=== PATIENT | male | born 1980 | race Caucasian/White ===

== ENCOUNTER 2016-12-29 10:28 | Day surgery (SDC) | payer OTHER ==
[2016-12-27 14:18] VITALS: BMI 27.8
[2016-12-29] MEDS ORDERED: PROPOFOL 20 ML ONE (12:28)
--- NOTE | 2016-12-29 12:55 | HP ---
Satellite [facility] - Chief Complaint Chief Complaint: right shoulder pain - Past Medical History Allergies/Adverse Reactions: Allergies Allergy/AdvReac Type Severity Reaction Status Date / Time No Known Allergies Allergy Verified 12/29/16 10:53 - Current Medications Current Medications: Home Medications Medication Instructions Recorded Multivitamins [Multivit ([facility] 1 tab PO DAILY 12/27/16 Formulary)] Hydrocodone/Acetaminophen [[place] 1 each PO Q6H PRN #40 tablet MDD 4 12/29/16 5-325 Tablet] Satellite Physical Exam - Physical Examination Vital Signs: Vital Signs Period Temp Pulse Resp BP Sys/Kitchen Pulse Ox Last 24 Hr 97.7 F 60 18 146/71 97 General Appearance: Well Nourished, Well Developed, Alert & Oriented x3 ENT: Clear Lung: Normal air movement Heart: Regular rate & rhythm Extremities: Other (right shoulder- + ttp, decr rom, + empty can, nvi MRI + rct , labral tear) Neurological: Intact, Alert, Oriented Satellite Impression/Plan - Impression/Plan Impression: left shoulder rct, labral tear Operative Procedure: left shoulder arthroscopy with RCR Date to be Performed: 12/29/16
[2016-12-29] MEDS ORDERED: ceFAZolin SODIUM 1 GM VIAL IVPB ONE (13:34)
[2016-12-29] MEDS ORDERED: ceFAZolin SODIUM 1 GM VIAL ONE (13:41)
[2016-12-29] MEDS ORDERED: DESFLURANE GAS 240 ML BOTTLE IH ONE (13:46)
--- NOTE | 2016-12-29 14:57 | OP ---
Operative Note - Note: Operative Date: 12/29/16 ([facility]) Pre-Operative Diagnosis: right shoulder rct, labral tear Operation: right shoulder arthroscopy with RCR, labral repair, SAD Implants: 1 arthrex pushjorge, speedbridge Post-Operative Diagnosis: Same as Pre-op Surgeon: Santi Castro Fibrous Wallboard Inspector: Phani Forrest Anesthesiologist/SEISMOGRAPH CHIEF: Cheikh Estes Anesthesia: General, Local Specimens Removed: shavings Estimated Blood Loss (mls): 10 Operative Report Dictated: Yes
[2016-12-29] MEDS ORDERED: ONDANSETRON 4 MG/2 ML VIAL IVPUSH PRN (15:03)
[2016-12-29] MEDS ORDERED: oxyCODONE HCL 5 MG TABLET PO PRN (15:03)
[2016-12-29] MEDS ORDERED: LACTATED RINGERS SOLUTION 1,000 ML IV SCH (15:15)
[2016-12-29 16:17] VITALS: TEMP 98.2
--- NOTE | 2016-12-29 17:14 | OP ---
DATE OF OPERATION: 12/29/2016 PREOPERATIVE DIAGNOSES: Right shoulder impingement, labral tear, and rotator cuff tear, and adhesive capsulitis. POSTOPERATIVE DIAGNOSES: Right shoulder impingement, labral tear, and rotator cuff tear, and adhesive capsulitis. PROCEDURE: Right shoulder arthroscopy, subacromial decompression, arthroscopic labral repair, arthroscopic rotator cuff repair, and manipulation under anesthesia. SURGEON: Santi Castro MD BASTER HAND: TANYA Nickerson; Cheikh Estes CRNA ANESTHESIA: Right interscalene block with LM anesthesia. DRAINS: None. COMPLICATIONS: None. BLOOD LOSS: Minimal. BLOOD GIVEN: None. FLUID REPLACEMENT: 700 mL. SPECIMEN: Arthroscopic shavings. This patient is a 36-year-old right-hand dominant male with a preoperative diagnosis of a right shoulder rotator cuff tear, labral tear, adhesive capsulitis, and impingement syndrome. After understanding the potential risks, complications, alternatives, benefits of surgical versus nonsurgical treatment, the patient elected to undergo this procedure. The patient understands his right shoulder may never be perfect, he may need extensive physical therapy, he may need additional surgery, and it will be locked up for almost 2 months. The patient was brought to the operating room, peripheral IV placed, IV sedation given, 1 g of IV Ancef was given. A right interscalene block was performed. He was placed into the beach chair position with ample padding throughout. The right upper extremity was prepped and draped in the usual sterile fashion. The bony landmarks were marked out with a marking pen. The posterior portal was established. A diagnostic glenohumeral arthroscopy was performed. The patient was seen to have a torn anterior labrum from approximately 12 o'clock to the 4 o'clock position. An anterior portal was established under direct visualization using spinal needle, a number 15 scalpel blade, and then a green cannula. The probe was introduced into joint, and the labrum from about the 12 position to the 3 o'clock position came off the glenoid rim easily. The biceps tendon was intact. The glenohumeral joint looked good. The patient had a massive complete crescent-shaped rotator cuff tear and I could easily see the subacromial space from the glenohumeral joint. Next, in the standard technique, an arthroscopic labral repair was done with 1 Arthrex PushLock anchor. It came down quite nicely and was quite stable. I did not feel there was room for a 2nd anchor. Next, our attention turned to the subacromial space. Lateral portal was established with the spinal needle under direct visualization. The patient had a moderate amount of inflammatory bursitis. A soft tissue bursectomy and extensive debridement was done with the ArthroCare wand. This revealed a moderate size subacromial spur. This was taken down with a 5.5-mm oval bur and fine-tuned in reverse, as well as with the shaver. Photographs were taken. Next, the top surface of the rotator cuff was directly visualized and the patient, as mentioned, had a massive, complete, crescent-shaped rotator cuff tear with significant retraction. There was large spur on the humerus. This was taken down with the fine-point 5-mm oval bur and shaver. Additional bursectomy was performed laterally. Next, using the standard technique, we put in a SpeedBridge. We passed 4 FiberTapes and put in 4 screws, crossed them, and had a large footprint, as intended. It all came down quite nicely and the rotator cuff covered the humeral head and moved as a unit. The area was copiously irrigated and washed out, again inspected, looked quite good. All instrumentation, excess saline was removed, the arthroscopy portals closed with 3-0 nylon sutures. The area was then washed and dried and covered with Aquacel dressing and he was put into a shoulder immobilizer. Total operative time was about 1 hour. There were no complications during the case. The patient tolerated the procedure quite well and was brought to the ambulatory recovery room in stable condition. Taj [id number]
[2016-12-29 17:52] VITALS: BP 140/80; PULSE 78
--- NOTE | 2016-12-31 17:54 | PATH ---
Surgical Pathology Report Patient Name: ABISAI PUGA [facility]. Rec. #: [id number] /Age/Gender: 1980 (Age: 36) / M Account: [id number] Location: [facility] SURGICAL Taken: 12/29/2016 Received: 12/30/2016 Reported: 12/31/2016 Physicians: Santi Castro M.D. Specimen(s) Received RIGHT SHOULDER SHAVINGS Clinical History Right shoulder tear Final Diagnosis SHOULDER, SHAVINGS, RIGHT, ARTHROSCOPY AND LABIAL REPAIR: BENIGN FIBROMEMBRANOUS AND FIBROADIPOSE TISSUE, CARTILAGE, SKELETAL MUSCLE AND SYNOVIUM. Electronically Signed Sulma Robert M.D. Gross Description Received in formalin, labeled "right shoulder shavings," is a 5.0 x 3.5 x 0.5 cm. aggregate of luz-yellow soft tissue fragments. A insurance service representative portion is submitted in one cassette. 12/30/201612/30/2016
== END 2016-12-29 17:45 | disposition home or self-care (01) ==
LOC: JASU-SURG 10:28
PROVIDERS: ATTEND Orthopaedic Surgery
PROC: 0LQ14ZZ Repair Right Shoulder Tendon, Percutaneous Endoscopic Approach (ICD-10-PCS; 2016-12-29)
PROC: 0RQJ4ZZ Repair Right Shoulder Joint, Percutaneous Endoscopic Approach (ICD-10-PCS; 2016-12-29)
PROC: 0RNJ4ZZ Release Right Shoulder Joint, Percutaneous Endoscopic Approach (ICD-10-PCS; principal; 2016-12-29 12:00)
DX: M75.01 Adhesive capsulitis of right shoulder (principal); M75.101 Unspecified rotator cuff tear or rupture of right shoulder, not specified as traumatic; M75.41 Impingement syndrome of right shoulder; S43.491A Other sprain of right shoulder joint, initial encounter; X58.XXXA Exposure to other specified factors, initial encounter; Y93.9 Activity, unspecified; Y92.9 Unspecified place or not applicable; Y99.9 Unspecified external cause status